=== PATIENT | female | born 1975 | race African-American/Black ===

== ENCOUNTER 2022-03-15 18:04 | Emergency (ER) | payer MEDICAID ==
[~2022-03-15] VITALS: Ht 160 cm; Wt 73.0 kg
[2022-03-15] MEDS ORDERED: ACETAMINOPHEN 325MG TABLET PO ONE (18:30)
[2022-03-15] MEDS ORDERED: LIDOCAINE 5% PATCH TOP SCH (18:30)
[2022-03-15] MEDS ORDERED: LIDO700A15 TP (19:30)
[2022-03-15] MEDS ORDERED: ACET-2708 MT (19:30)
[2022-03-15] MEDS ORDERED: BACL-141 MT (19:30)
[2022-03-15 20:00] VITALS: BP 134/84
== END 2022-03-15 20:20 | disposition home or self-care (01) ==
LOC: ER 18:04
DX: R07.89 Other chest pain (principal); R03.0 Elevated blood-pressure reading, without diagnosis of hypertension; J45.909 Unspecified asthma, uncomplicated; S09.8XXA Other specified injuries of head, initial encounter; W22.09XA Striking against other stationary object, initial encounter; Y93.55 Activity, bike riding; Y92.9 Unspecified place or not applicable
CPT/HCPCS: 71045; 93005; 99283